=== PATIENT | female | born 1965 | race Caucasian/White ===

== ENCOUNTER 2017-03-15 06:08 | Day surgery (SDC) | payer BC ==
[2017-03-15] MEDS ORDERED: Lactated Ringers 1,000 ML IV SCH (06:45)
[2017-03-15] MEDS ORDERED: Midazolam 1 MG/ML 2 ML SDV ONE (07:24)
[2017-03-15] MEDS ORDERED: Propofol 200 MG/20 ML SDV ONE (07:24)
[2017-03-15] MEDS ORDERED: fentaNYL 100 MCG/2 ML SDV ONE (07:24)
[2017-03-15 09:24] VITALS: BP 119/85
--- NOTE | 2017-03-15 10:24 | OR ---
DATE OF PROCEDURE: 03/15/2017 PREOPERATIVE DIAGNOSIS: Colon cancer screening. POSTOPERATIVE DIAGNOSES: Pandiverticulosis and small rectal polyp. PROCEDURE PERFORMED: Colonoscopy to the cecum with biopsy resection of small rectal polyp. SURGEON: Luis A Cifuentes MD. ANESTHESIA: IV anesthesia with monitored anesthesia care. INDICATION: This 51-year-old white female is referred for a colonoscopy for colon cancer screening. She has never had a colonoscopic exam. I counseled her for the procedure including risks and alternatives, and she gave her informed consent to proceed. DESCRIPTION OF PROCEDURE: The patient was placed in the left lateral decubitus position. IV anesthesia was administered by the Anesthesia Service. Time-out was held. A rectal exam was performed, which was unremarkable. The flexible video Olympus colonoscope was introduced through her anus, up her rectum, and out her colon all the way to the cecum. To accomplish this, we did apply some abdominal compression. Once the cecum was reached, the scope was slowly withdrawn, examining the mucosa throughout. We did note both right and left-sided diverticula. These were fairly scattered and few. There was no bleeding or inflammation associated with any of them. In the rectum, a small polyp was seen , which was removed with a single bite of the biopsy forceps. The scope was retroflexed. The distal rectum appeared unremarkable. The scope was straightened and removed. She tolerated the procedure well. Luis A Cifuentes MD /[id number] MTDD
== END 2017-03-15 09:28 | disposition home or self-care (01) ==
LOC: JP.SDS 06:08
PROVIDERS: ATTEND Surgery
DX: Z12.11 Encounter for screening for malignant neoplasm of colon (principal); K62.1 Rectal polyp; K57.30 Diverticulosis of large intestine without perforation or abscess without bleeding
CPT/HCPCS: 45380; J2250; J2704; J3010; J7120; 88305